=== PATIENT | female | born 1955 | race Caucasian/White ===

== ENCOUNTER 2021-04-21 17:02 | Inpatient (IN) ==
--- NOTE | 2021-04-21 18:20 | XRay Report ---
XR chest 1V portable CLINICAL HISTORY: SOB TECHNIQUE: Single frontal radiograph of the chest was obtained. Comparison: Comparison is made to chest 2 views 07/23/2020 FINDINGS: No lines and tubes are seen. The cardiomediastinal silhouette is normal. The lungs are clear. No evid ence of pleural effusion or pneumothorax. IMPRESSION: No acute chest disease. ACT 112: Negative or not required by law. Electronically signed by: Steven Shrestha M.D. 04/21/2021 6:19 PM
[2021-04-21 19:07] LABS: Basophils # (auto) 0.02 K/uL (0-0.2); Basophils % (auto) 0.2 %; Eosinophils # (auto) 0.01 K/uL (0-0.5); Eosinophils % (auto) 0.1 %; Hematocrit (blood only) 42.5 % (37-47); Hemoglobin 14.5 g/dL (12.0-16.0); Immature Granulocytes # (auto) 0.01 K/uL (0.00-0.02); Immature Granulocytes % (auto) 0.1 %; Lymphocytes # (auto) 1.44 K/uL (1.2-3.4); Lymphocytes % (auto) 13.7 %; Mean Corpuscular Hgb Conc 34.1 g/dL (32-36); Mean Platelet Volume 8.7 fL (7.4-10.4); Monocytes % (auto) 3.8 %; Neutrophils # (auto) 8.64 K/uL (1.4-6.5); Neutrophils % (auto) 82.1 %; Platelet Count 355 K/uL (130-400); RDW Coefficient of Variation 13.7 % (11.5-14.5); RDW Standard Deviation 44.9 fL (36.4-46.3); Red Blood Count 4.67 M/uL (4.2-5.4); White Blood Count 10.52 K/uL (4.8-10.8)
[2021-04-21 19:26] LABS: Albumin Level 4.2 gm/dl (3.4-5.0); BUN Creatinine Ratio 22.4 (10-20); Calcium 9.7 mg/dl (8.5-10.1); Creatinine Clr Calc Pharmacy 53.5 ml/min; Est GFR (African American) 67.5 ml/min; Est GFR (Non-African American) 58.3 ml/min; Magnesium 2.5 mg/dl (1.8-2.4); Partial Thromboplastin Ratio 0.9; Partial Thromboplastin Time 24.6 Seconds (21.0-31.0); Potassium 3.4 mmol/L (3.5-5.1); Prothrombin Time 10.1 Seconds (9.0-12.0)
[2021-04-21 19:52] LABS: Albumin Globulin Ratio 1.1 (0.9-2); Bilirubin,Total 0.4 mg/dl (0.2-1); Globulin 3.7 gm/dl (2.5-4.0); Total Protein 7.9 gm/dl (6.4-8.2); Troponin I 0.177 ng/ml (0-0.045)
--- NOTE | 2021-04-21 20:44 | Emergency Department Note ---
Impression & Plan Elevated troponin, Acute pulmonary embolism ADMIT ED Provider Note HPI: The patient is a 65-year-old female with history of hypertension, patient presents the emergency department with a chief complaint of shortness of breath.Patient states that her symptoms began yesterday, she felt more short of breath with exertion, has a slight cough, she has had some wheezing. She states that she took her blood pressure at home and it was elevated greater than 200 systolic today which also concerned her. She denies any chest pain but does admit to chest "weakness" which she states is secondary to her increased work of breathing.On arrival to the ED the patient is uncomfortable appearing, she is slightly tachypneic with some mild increased work of breathing. She is sat urating well on room air. She is afebrile on arrival. ROS: - Pulmonary: Increased work of breathing/shortness of breath *10 point review systems was conducted and is otherwise negative unless stated above *Outpatient medications and allergy history reviewed PE: General: Alert, NAD HEENT: Normocephalic, atraumatic, trachea midline Eyes: Extraocular eye movement is intact, no scleral erythema Pulmonary: Mild expiratory wheezing, tachypnea, no crackles Cardio: Regular rate and rhythm GI: Abdomen is soft, nontender : No suprapubic tenderness MSK: No evidence of trauma or malformation of the extremities, no edema Skin: No evidence of rash Neuro: Alert, no focal deficits 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 The RV-LV ratio is approximately 1.1 suggesting right heart strain. No focal consolidation. No mediastinal adenopathy. Comparison made with same day chest x-ray Radiologist: Ar Gomez MD Medical Decision Making: Patient presented with Shortness of breath that has been ongoing for about the past 36 hours. Patient denies any chest pain but states that she is having some "weakness". Labwork shows evidence of a elevated troponin at 0.17, EKG does not show any acute ischemic changes. Hemoglobin is stable, no leukocytosis. Interventions included DuoNeb breathing treatment, IV Solu-Medrol. COVID-[address] angiography of the chest was obtained and shows evidence of bilateral pulmonary emboli with some possible mild right heart strain. EKG does not show any ischemic changes. On re-evaluation the patient is resting comfortably, states that she does feel somewhat anxious therefore she was given a dose of IV Ativan. Heparin drip was ordered. I discussed the above findings with the on-call hospitalist for [facility], Dr. Yip, Who is in agreement to admit the patient to a telemetry bed for further management. Patient was updated in regards to the above findings, she is in agreement for admission. Patient was admitted in improved condition. * CRITICAL CARE TIME: 50 minutes - Diagnosis and management of acute bilateral pulmonary emboli, elevated troponin, initiation of heparin drip for acute bilateral PE in the setting of an elevated troponin with possible right heart strain, time spent at the bedside, interpretation of diagnostic studies, discussion with other physicians and arrangement of admission Diagnosis: 1. Elevated troponin Without ST elevation on EKG 2. Bilateral pulmonary emboli 3. Shortness of breath 4. Anxiety Disposition: Admission Cricket Vanegas DO Emergency Medicine Past Med/Surg History Social History Smoking Status: Never smoker Preferred Language: Bulgarian Feels Safe at Home: Yes Allergies Allergies Allergy/AdvReac Type Severity Reaction Status Date / Time hydrocodone Allergy Intermediate itchiness Verified 04/21/21 22:00 Home Meds Home Medications Medication Instructions Recorded Confirmed atenolol 25 mg tablet 25 mg PO DAILY 04/21/21 04/21/21 cholecalciferol (vitamin D3) 50 50 mcg PO DAILY 04/21/21 04/21/21 mcg (2,000 unit) capsule (Vitamin D3) levothyroxine 112 mcg tablet 112 mcg PO DAILYBB 04/21/21 04/21/21 losartan 25 mg tablet 25 mg PO BID 04/21/21 04/21/21 rosuvastatin 5 mg tablet 5 mg PO HS 04/21/21 04/21/21 Results & Data (ED) Vital Signs Vital Signs - 24 hr 04/21/21 17:15 04/21/21 20:52 04/21/21 22:00 Temperature 36.7 C Temperature Source Temporal Artery Scan Pulse Rate 107 H Pulse Rate [Right Finger] 99 H 86 Pulse Rhythm Regular Pulse Rhythm [Right Finger] Regular Regular Pulse Strength Normal Pulse Strength [Right Finger] Normal Normal Respiratory Rate 20 18 18 Respiratory Effort / Characteristics Non-Labored Spontaneous Non-Labored Non-Labored Respiratory Depth Normal Normal Normal Respiratory Pattern Regular Regular Regular Blood Pressure 178/97 H Blood Pressure [Right Arm] 190/121 H 161/107 H Blood Pressure Mean 124 Blood Pressure Mean [Right Arm] 144 125 Blood Pressure Position Sitting Blood Pressure Position [Right Arm] Lying Pulse Oximetry 94 98 96 Oxygen Delivery Method Room Air Room Air Room Air Sepsis Recent Fever Within 48 Hours No Sepsis New/Unexplained Change in Mental Status No Sepsis Action Taken by Nursing No Action Required Laboratory Data Result diagrams: 04/21/21 18:50 04/21/21 18:50 Lab Results 04/21/21 04/21/21 04/21/21 Range/Units 18:50 18:50 18:50 WBC 10.52 (4.8-10.8) K/uL RBC 4.67 (4.2-5.4) M/uL Hgb 14.5 (12.0-16.0) g/dL Hct 42.5 (37-47) % MCV 91.0 (80-100) fL MCH 31.0 (25-34) pg MCHC 34.1 (32-36) g/dL RDW Std Deviation 44.9 (36.4-46.3) fL RDW Coeff of Ramirez 13.7 (11.5-14.5) % Plt Count 355 (130-400) K/uL MPV 8.7 (7.4-10.4) fL Immature Gran % (Auto) 0.1 % Neut % (Auto) 82.1 % Lymph % (Auto) 13.7 % Storey % (Auto) 3.8 % Eos % (Auto) 0.1 % Baso % (Auto) 0.2 % Neut # (Auto) 8.64 H (1.4-6.5) K/uL Lymph # (Auto) 1.44 (1.2-3.4) K/uL Storey # (Auto) 0.40 (0.11-0.59) K/uL Eos # (Auto) 0.01 (0-0.5) K/uL Baso # (Auto) 0.02 (0-0.2) K/uL Immature Gran # (Auto) 0.01 (0.00-0.02) K/uL PT 10.1 (9.0-12.0) Seconds INR 1.0 (0.9-1.1) APTT 24.6 (21.0-31.0) Seconds PTT Ratio 0.9 Sodium 138 (136-145) mmol/L Potassium 3.4 L (3.5-5.1) mmol/L Chloride 107 (98-107) mmol/L Carbon Dioxide 24 (21-32) mmol/L Anion Gap 7.0 (3-11) BUN 22 H (7-18) mg/dl Creatinine 1.00 (0.6-1.2) mg/dl Est Cr Clr Drug Dosing 53.5 ml/min Est GFR ( Amer) 67.5 ml/min Est GFR (Non-Af Amer) 58.3 ml/min BUN/Creatinine Ratio 22.4 H (10-20) Glucose 117 H (70-99) mg/dl Calcium 9.7 (8.5-10.1) mg/dl Magnesium 2.5 H (1.8-2.4) mg/dl Total Bilirubin 0.4 (0.2-1) mg/dl AST 62 H (15-37) U/L ALT 91 H (12-78) Alkaline Phosphatase 64 (45-117) U/L Troponin I 0.177 H* (0-0.045) ng/ml Total Protein 7.9 (6.4-8.2) gm/dl Albumin 4.2 (3.4-5.0) gm/dl Globulin 3.7 (2.5-4.0) gm/dl Albumin/Globulin Ratio 1.1 (0.9-2) SARS-CoV-2 (PCR) (Negative) Influenza Type A (PCR) (Neg) Influenza Type B (PCR) (Neg) RSV (RT-PCR) (Neg) 04/21/21 Range/Units Unknown WBC (4.8-10.8) K/uL RBC (4.2-5.4) M/uL Hgb (12.0-16.0) g/dL Hct (37-47) % MCV (80-100) fL MCH (25-34) pg MCHC (32-36) g/dL RDW Std Deviation (36.4-46.3) fL RDW Coeff of Ramirez (11.5-14.5) % Plt Count (130-400) K/uL MPV (7.4-10.4) fL Immature Gran % (Auto) % Neut % (Auto) % Lymph % (Auto) % Storey % (Auto) % Eos % (Auto) % Baso % (Auto) % Neut # (Auto) (1.4-6.5) K/uL Lymph # (Auto) (1.2-3.4) K/uL Storey # (Auto) (0.11-0.59) K/uL Eos # (Auto) (0-0.5) K/uL Baso # (Auto) (0-0.2) K/uL Immature Gran # (Auto) (0.00-0.02) K/uL PT (9.0-12.0) Seconds INR (0.9-1.1) APTT (21.0-31.0) Seconds PTT Ratio Sodium (136-145) mmol/L Potassium (3.5-5.1) mmol/L Chloride (98-107) mmol/L Carbon Dioxide (21-32) mmol/L Anion Gap (3-11) BUN (7-18) mg/dl Creatinine (0.6-1.2) mg/dl Est Cr Clr Drug Dosing ml/min Est GFR ( Amer) ml/min Est GFR (Non-Af Amer) ml/min BUN/Creatinine Ratio (10-20) Glucose (70-99) mg/dl Calcium (8.5-10.1) mg/dl Magnesium (1.8-2.4) mg/dl Total Bilirubin (0.2-1) mg/dl AST (15-37) U/L ALT (12-78) Alkaline Phosphatase (45-117) U/L Troponin I (0-0.045) ng/ml Total Protein (6.4-8.2) gm/dl Albumin (3.4-5.0) gm/dl Globulin (2.5-4.0) gm/dl Albumin/Globulin Ratio (0.9-2) SARS-CoV-2 (PCR) NEGATIVE (Negative) Influenza Type A (PCR) Negative (Neg) Influenza Type B (PCR) Negative (Neg) RSV (RT-PCR) Negative (Neg) Administered Medications Discontinued Medications Albuterol (Albut/Ipratrop 3mg/0.5mg Neb 3 Ml Vial) 3 ml NEB NOW STA; Protocol Stop: 04/21/21 20:46 Last Admin: 04/21/21 22:13 Dose: 3 ml Documented by: [id number] Aspirin (Aspirin Chew 324 Mg) 324 mg PO NOW STA Stop: 04/21/21 20:47 Last Admin: 04/21/21 22:13 Dose: 324 mg Documented by: [id number] Hydralazine HCl (Hydralazine Hcl 20 Mg/Ml Vial) 10 mg IV NOW STA Stop: 04/21/21 21:02 Last Admin: 04/21/21 22:13 Dose: 10 mg Documented by: [id number] Ioversol (Optiray 320 125ml) 121 ml IV ONCE ONE Stop: 04/21/21 21:41 Last Admin: 04/21/21 21:40 Dose: 121 ml Documented by: [id number] Methylprednisolone (Methylprednisolone 125 Mg/2 Ml Vial) 125 mg IV NOW STA Stop: 04/21/21 20:46 Last Admin: 04/21/21 22:13 Dose: 125 mg Documented by: [id number] Imaging Data Radiologist's Impression: Chest X-Ray 04/21/21 17:18 XR chest 1V portable CLINICAL HISTORY: SOB TECHNIQUE: Single frontal radiograph of the chest was obtained. Comparison: Comparison is made to chest 2 views 07/23/2020 FINDINGS: No lines and tubes are seen. The cardiomediastinal silhouette is normal. The lungs are clear. No evidence of pleural effusion or pneumothorax. IMPRESSION: No acute chest disease. ACT 112: Negative or not required by law. Electronically signed by: Steven Shrestha M.D. 04/21/2021 6:19 PM Discharge Plan Visit Data Chief Complaint: Shortness of Breath/Dyspnea Stated Complaint: SOB, HBP 201/109 ED Provider: Cricket Vanegas Discharge Problem: Elevated troponin, Acute pulmonary embolism Forms Stand Alone Forms: [employer] Prescriptions Prescriptions: No Action atenolol 25 mg tablet 25 mg PO DAILY RF: 0 losartan 25 mg tablet 25 mg PO BID RF: 0 levothyroxine 112 mcg tablet 112 mcg PO DAILYBB RF: 0 rosuvastatin 5 mg tablet 5 mg PO HS RF: 0 cholecalciferol (vitamin D3) [Vitamin D3] 50 mcg (2,000 unit) Capsule 50 mcg PO DAILY RF: 0 Referrals Referrals: Bo Barraza [Primary Care Provider] - Discharge Problem: Acute pulmonary embolism Qualifiers: Pulmonary embolism type: unspecified Acute cor pulmonale presence: unspecified Qualified Code(s): I26.99 - Other pulmonary embolism without acute cor pulmonale
[2021-04-21] MEDS ORDERED: ALBUT/IPRATROP 3MG/0.5MG NEB 3 ML VIAL NEB STA (20:45)
[2021-04-21] MEDS ORDERED: methylPREDNISolone 125 MG/2 ML VIAL IV STA (20:45)
[2021-04-21] MEDS ORDERED: ASPIRIN CHEW 324 MG PO STA (20:46)
[2021-04-21] MEDS ORDERED: hydrALAZINE HCL 20 MG/ML VIAL IV STA (21:01)
[2021-04-21] MEDS ORDERED: OPTIRAY 320 125ml IV ONE (21:40)
[2021-04-21 22:03] LABS: Influenza A virus by PCR Negative (Neg); Influenza B virus by PCR Negative (Neg); RSV by PCR Negative (Neg); SARS CoV2 RNA(COVID-19) InHosp NEGATIVE (Negative)
[2021-04-21] MEDS ORDERED: Heparin IV Adult Wt-Based Standard *NO* Bolus Protocol IV ONE (22:42)
[2021-04-21] MEDS: HEPARIN SODIUM/DEXTROSE 25,000 UNITS/500 ML BAG IV SCH (23:37)
[2021-04-22] MEDS ORDERED: LORazepam 0.5 MG TAB PO STA (00:02)
[2021-04-22] MEDS ORDERED: POTASSIUM CHLORIDE CRTAB 20 MEQ TABCR PO STA (01:45)
[2021-04-22] MEDS ORDERED: LABETALOL HCL IV 5 MG/ML 20ML IV PRN (01:45)
--- NOTE | 2021-04-22 02:51 | History and Physical Report ---
DATE OF ADMISSION: 04/21/2021. CHIEF COMPLAINT: Shortness of breath. HISTORY OF PRESENT ILLNESS: This is a 65-year-old female with past medical history significant for hypertension, heartburn, hyperlipidemia, hypothyroidism, history of basal cell skin cancer, who lives alone, presents with shortness of breath. The patient states since last night she was feeling short of breath, which prompted her to come to the ER. Denies any chest pain. No cough, no fevers, no headache, no blurred visions, no runny nose, no sore throat. No nausea, no vomiting, no abdominal pain. Normal bowel and bladder movements. No hematuria, no blood in the stool No Night sweats. No recent weight gain or loss. Says Had Normal colonoscopy in 2013. In the ER, imaging studies showed bilateral PE and also possible right heart strain. Troponin 0.17. With 2 liters oxygen, she is saturating 100%. Feeling somewhat anxious and requested for some antianxiety medication. The patient says she has no history of blood clots in the past and the patient says her mother's side has a history of blood clots. Denies any leg pain. Denies any recent surgeries otherwise. She is not very active, but she ambulates okay at home and she baby sits her two grandkids. ALLERGIES: HYDROCODONE. PAST MEDICAL HISTORY: As mentioned above. PAST SURGICAL HISTORY: Right total knee arthroplasty, colonoscopy, EGD, skin cancer surgery x3 in 2011, partial hysterectomy. MEDICATIONS: The patient is on atenolol 25 mg p.o. daily, vitamin D 50 mcg p.o. daily, levothyroxine 112 mcg p.o. daily, losartan 25 mg p.o. b.i.d., Crestor 5 mg p.o. at bedtime. FAMILY HISTORY: Significant for father had esophageal cancer and HI at age of 65; mother has hypertension, kidney cancer and diabetes. SOCIAL HISTORY: Currently lives alone. No smoking, alcohol rare, no drug use. REVIEW OF SYSTEMS: As per HPI. Rest of review of systems is negative. PHYSICAL EXAMINATION: GENERAL: The patient is of moderate build, not in acute distress. VITAL SIGNS: Temperature 36.7, pulse 103, respiratory rate 20, blood pressure 189/104, oxygen 100% on 2 liters. HEENT: Pupils equal, round and reactive to light. Oral mucosa moist. NECK: No JVD. No neck masses. CARDIOVASCULAR: S1 and S2 heard. Regular rate and rhythm. No murmur, no gallop. RESPIRATORY SYSTEM: Normal AP diameter. No accessory muscle use. No wheezing, no crackles. ABDOMEN: Soft, bowel sounds present, nontender, no distention. CENTRAL NERVOUS SYSTEM: Cranial nerves II-XII grossly intact, nonfocal. EXTREMITIES: Trace pedal edema, no erythema, no calf tenderness. LABORATORY DATA: WBC 10.5, hemoglobin 14.5, hematocrit 42.5, platelets 355. PT 10.1, INR 1, APTT 24.6. Sodium 138, potassium 3.4, chloride 107, bicarbonate 24, BUN 22, creatinine 1, serum glucose 117, calcium 9.72, magnesium 2.5, total bilirubin 0.4, AST 62, ALT 91, alkaline phosphatase 64. Troponin 1 of 0.177. SARS-CoV-2 PCR negative. Influenza A and B PCR negative. RSV PCR negative. IMAGING DATA: CTA of the chest on the preliminary report shows multilobar and segmental pulmonary emboli bilaterally, possible right heart strain, no focal consolidation. Chest x-ray, no acute chest disease. EKG: Sinus tachycardia at a rate of 103, nonspecific ST changes seen. ASSESSMENT AND PLAN: This is a 65-year-old female who presents with shortness of breath and found to have bilateral pulmonary embolism. 1. Bilateral pulmonary embolism. Possible right heart strain, unprovoked pulmonary embolism. Family history significant for blood clots on the mother's side. The patient never had blood clots. Mild elevation of troponin. Possible right heart strain on CAT scan. Will follow the echocardiogram. Started on IV heparin. Also will follow lower extremity Doppler. Closely monitor in the tele floor. Consult pulmonary in the a.m. and also cardiology in the a.m. and follow serial cardiac enzymes.Hypercoagulable workup and cancer screening as out patient. 2. Hypertension: Continue her atenolol and losartan. Will place on IV labetalol p.r.n. 3. Hypothyroidism: Continue Synthroid. 4. Hyperlipidemia: Continue statin. 5. Deep venous thrombosis prophylaxis: On IV heparin. DISPOSITION: Closely monitor in tele floor. Level 1 full code. Expect to discharge home and follow with family doctor. Job ID: [id number] [facility]
[2021-04-22] MEDS ORDERED: ONDANSETRON INJ 2 MG/ML 2 ML VIAL IV PRN (03:54)
[2021-04-22] MEDS ORDERED: LEVALBUTEROL HCL 1.25 MG/3 ML NEB NEB PRN (03:54)
[2021-04-22] MEDS ORDERED: NITROGLYCERIN SL 0.4 MG/TAB TAB SL PRN (03:54)
[2021-04-22] MEDS ORDERED: SODIUM CHLORIDE 0.9% 1000ML 1,000 ML IV SCH (03:54)
[2021-04-22 06:08] LABS: Hematocrit (blood only) 42.4 % (37-47); Hemoglobin 14.4 g/dL (12.0-16.0); Immature Granulocytes # (auto) 0.02 K/uL (0.00-0.02); Immature Granulocytes % (auto) 0.2 %; Lymphocytes # (auto) 0.86 K/uL (1.2-3.4); Lymphocytes % (auto) 8.7 %; Mean Corpuscular Hemoglobin 30.6 pg (25-34); Mean Corpuscular Volume 90.2 fL (80-100); Mean Platelet Volume 8.7 fL (7.4-10.4); Monocytes # (auto) 0.04 K/uL (0.11-0.59); Monocytes % (auto) 0.4 %; Neutrophils # (auto) 8.99 K/uL (1.4-6.5); Neutrophils % (auto) 90.7 %; Platelet Count 325 K/uL (130-400); RDW Coefficient of Variation 13.7 % (11.5-14.5); RDW Standard Deviation 45.3 fL (36.4-46.3); White Blood Count 9.91 K/uL (4.8-10.8)
--- NOTE | 2021-04-22 06:32 | Ultrasound Report ---
BILATERAL LOWER EXTREMITY VENOUS DOPPLER CLINICAL HISTORY: b/l acute PE COMPARISON STUDY: No previous studies for comparison. TECHNIQUE: Sonography of the deep venous system of the bilateral lower extremities was performed. Co mpression and augmentation were evaluated. FINDINGS: The bilateral common femoral, superficial femoral and popliteal veins are patent. There is no deep venous thrombus within the right lower extremity. Note is made of deep venous thrombus within the left posterior tibial vein. IMPRESSION: Deep venous thrombus within the left posterior tibial vein. ACT 112: Negative or not required by law. Electronically signed by: Nirav White M.D. 04/22/2021 6:30 AM
[2021-04-22 06:39] LABS: Partial Thromboplastin Ratio 1.8
[2021-04-22 06:40] LABS: BUN Creatinine Ratio 19.2 (10-20); Calcium 9.5 mg/dl (8.5-10.1); Creatinine Clr Calc Pharmacy 69.2 ml/min; Est GFR (African American) 89.8 ml/min; Est GFR (Non-African American) 77.5 ml/min; Magnesium 2.3 mg/dl (1.8-2.4); Potassium 3.7 mmol/L (3.5-5.1)
[2021-04-22 06:53] LABS: Troponin I 0.073 ng/ml (0-0.045)
[2021-04-22 07:15] LABS: Partial Thromboplastin Time 46.1 Seconds (21.0-31.0)
[2021-04-22] MEDS: LEVOTHYROXINE SODIUM 112 MCG TABLET PO SCH (07:19)
--- NOTE | 2021-04-22 08:21 | CT Scan Report ---
CT angio chest PE protocol CLINICAL HISTORY: PE dyspnea, worse with exertion. TECHNIQUE: Multidetector row helical CT of the chest was performed. Coronal and sagittal reformations were obtained. Coronal and sagittal MIPS were obtained from the axial data set and were submitted fo r review. Automated dose lowering techniques and/or adjustment according to patient size were utiliz ed for this exam. Comparison: None available at the time of this dictation. FINDINGS: Lungs and pleura: Atelectasis versus scarring is seen in the dependent portions of the lungs. Heart and pericardium: There is flattening of the interventricular septum and enlargement of the righ t ventricle compared to left (51 mm versus 45 mm. Vessels: Pulmonary emboli are seen in the lobar segmental branches of all lobes of the lung, some of the segmental emboli are occlusive. Mediastinum and tamara: Unremarkable. Chest wall and lower neck: Unremarkable. Abdomen: Unremarkable. Bones: Degenerative changes in the thoracic spine. IMPRESSION: Multifocal lobar and segmental pulmonary emboli bilaterally finding with right heart strain. ACT 112: Negative or not required by law. Electronically signed by: Steven Shrestha M.D. 04/22/2021 8:20 AM
--- NOTE | 2021-04-22 08:52 | Pulmonary Consultation ---
Date of Consultation April 22, 2021 Assessment & Plan (1) Acute pulmonary embolism: Acute cor pulmonale presence: unspecified Pulmonary embolism type: unspecified Qualified Code(s): I26.99 - Other pulmonary embolism without acute cor pulmonale (2) Shortness of breath: (3) DVT (deep venous thrombosis): CTA chest 04/21/2021 personally reviewed: Bilateral segmental and segmental PEs appreciated. Minimal air trapping lower lobes No mediastinal lymphadenopathy --Acute PE Mild right heart strain appreciated on the CT a chest 2D echo shows normal right ventricular function Patient is hemodynamically stable with saturation 98% on room air No indication for TPA currently Unprovoked. Patient will likely need lifelong anticoagulation. Given the family history of blood clots. Patient should be worked up for hypercoagulable state. Patient might need warfarin at that valuation prior to discharge --DVT Left tibia --Morbid obesity Advised to lose with diet and exercise Patient will benefit from outpatient polysomnography Plan: Patient is hemodynamically stable. She is saturating 98% on room air 2D echo shows normal right ventricular size and function. She does have mild to moderate pulmonary hypertension which is most likely from underlying PE Incentive spirometry will be beneficial. No indication for TPA. Patient will likely need lifelong anticoagulation. Given the family history of blood clots. Patient should be worked up for hyp ercoagulable state. Patient might need warfarin at that valuation prior to discharge Continue with anticoagulation Case was discussed with Dr Ordoñez No further recommendation from pulmonary perspective. We will sign off. Please call directly with any questions Please note the above document was generated using voice recognition software. It may contain grammatical, syntax or spelling errors.Any formal questions or concerns about the content, text or information contained within the body of this dictation should be directly addressed to the provider for clarification. History of Present Illness Attending Physician: Marco A Ordoñez MD History of Present Illness 65-year-old female presented to the hospital with complaints of exertional shortness of breath and chest heaviness Past medical history: Dyslipidemia, GERD, hypothyroidism When she presented to the ED patient had a CTA done which showed bilateral PE Pulmonary consulted for the same. The time of examination patient was saturating 96% on room air. She was not tachycardic. Not in any distress Denied any chest pain, denies any pleuritic pain. No nausea or vomiting Denies any hemoptysis. She denies any recent travel history. No recent surgery. No trauma to the leg. There is strong family history of blood clots in the maternal side. Social history: Non-smoker, no illicit drug use, no alcohol use. Allergies Allergy/AdvReac Type Severity Reaction Status Date / Time hydrocodone Allergy Intermediate itchiness Verified 04/21/21 22:00 Home Medications Medication Instructions Recorded Confirmed Type atenolol 25 mg tablet 25 mg PO DAILY 04/21/21 04/21/21 History cholecalciferol (vitamin D3) 50 50 mcg PO DAILY 04/21/21 04/21/21 History mcg (2,000 unit) capsule (Vitamin D3) levothyroxine 112 mcg tablet 112 mcg PO DAILYBB 04/21/21 04/21/21 History losartan 25 mg tablet 25 mg PO BID 04/21/21 04/21/21 History rosuvastatin 5 mg tablet 5 mg PO HS 04/21/21 04/21/21 History Patient History Social History Smoking Status: Never smoker Hx Substance Use: No Preferred Language: Scottish Communication Ability: Effective Communication Ability Comment: Hearing Aids Media Relations Coordinator Required: No Beliefs That Will Affect Care: None Current Living Situation: Alone Feels Safe at Home: Yes Safety Concerns: Feels Safe At This Time Assistive Devices: None Review of Systems Review of Systems: All systems reviewed & are unremarkable except as noted in HPI & below Physical Exam Physical Exam: Constitutional: No acute distress HEENT: EOMI, PERRLA Respiratory system: Good air entry bilaterally, no wheeze, rhonchi, mild crackles bilateral lower lobes CVS: S1-S2 positive, no murmurs or gallops Abdomen: Soft, nontender, nondistended, positive bowel sounds x4 Extremities: +2 pulses bilaterally radialis/ dorsalis pedis, no cyanosis, no edema Neuro: Awake alert oriented x3 Psych: Normal mood and affect G/U: No Vaughan Skin: no rashes, warm and dry Lymphatic: no cervical or axillary lymphadenopathy Results & Data Results & Data ([facility]) Vital Signs (Past 12 Hours) Vital Signs Pulse Resp BP Pulse Ox Pulse Ox 04/22/21 08:23 97 H 19 150/93 H 98 04/22/21 05:41 95 H 24 157/104 H 98 04/22/21 04:27 90 17 129/80 94 94 04/22/21 03:20 96 H 25 H 144/96 H 95 04/21/21 23:44 103 H 20 189/104 H 100 04/21/21 22:00 86 18 161/107 H 96 04/21/21 20:52 99 H 18 190/121 H 98 04/22/21 05:48 04/22/21 05:48 PG Care Time/CCT Total # of Minutes Spent Total Time Spent with Patient: Total time spent is greater than 50% in coordination of care (as documented) at patient's floor/unit and/or counseling patient: Coding Level of Care Code 10233 Initial Inpt Care Lvl 3 Diagnoses Acute pulmonary embolism I26.99 Acute cor pulmonale presence: unspecified Pulmonary embolism type: unspecified Shortness of breath R06.02 DVT (deep venous thrombosis) I82.409
[2021-04-22] MEDS ORDERED: ATENOLOL 25 MG TABLET PO SCH (09:00)
[2021-04-22] MEDS: LOSARTAN POTASSIUM 25 MG TAB PO SCH ×2 (09:07→20:59)
[2021-04-22] MEDS: CHOLECALCIFEROL 1,000 UNITS 25 MCG TAB PO SCH (09:08)
--- NOTE | 2021-04-22 10:23 | Electrocardiogram Report ---
Test Reason : Blood Pressure : / mmHG Vent. Rate : 103 BPM Atrial Rate : 103 BPM P-R Int : 196 ms QRS Dur : 082 ms QT Int : 356 ms P-R-T Axes : 058 023 035 degrees QTc Int : 466 ms Sinus tachycardia Otherwise normal ECG When compared with ECG of 23-JUL-2014 14:35, Vent. rate has increased BY 40 BPM Non-specific change in ST segment in Anterior leads QT has lengthened Confirmed by Sandeep Edward ([id number]) on 04/22/2021 10:23:35 AM Referred By: REFERRED SELF Confirmed By:Sandeep Edward
--- NOTE | 2021-04-22 10:25 | Cardiology Consultation ---
Date of Consultation April 22, 2021 Assessment & Plan (1) Acute pulmonary embolism: (2) Elevated troponin: Patient is a 65-year-old female presents with acute bilateral pulmonary emboli Troponins mildly elevated reflecting ventricular strain from acute pulmonary issues. Echocardiogram with preserved LV systolic function as well as right ventricular systolic function, moderately elevated pulmonary pressures Exam notable for hypertension and mild tachycardia Recommendations: Anticoagulation as indicated. Findings do not suggest acute coronary syndrome. Would however increase atenolol to 50 mg/day and follow blood pressure closely. Patient at risk for atrial arrhythmias if blood pressure and heart rate uncontrolled Call with any question History of Present Illness Reason for Consultation: Elevated troponin, pulmonary emboli Requesting Physician: Dr. Ordoñez Attending Physician: Marco A Ordoñez MD History of Present Illness Patient is a 65-year-old female without prior history of cardiac disease with underlying issues to include hypertension, hyperlipidemia, obesity. She presents this admission noting having been relatively sedentary recently due to flaring chronic back pain. She presented with acute dyspnea with subsequent evaluation demonstrating bilateral pulmonary embolus and deep venous thrombosis. Patient notes no prior history of such but notes familial history of "blood clots" in maternal family. Denies any chest pains dizziness lightheadedness tachypalpitations syncope or near syncope. No recent surgeries or leg injuries. No orthopnea. Currently dyspneic with minimal motion but otherwise no acute complaints. No prior history of bleeding difficulties. No acute weight loss or gain. No fevers chills or unexplained infections. Allergies Allergy/AdvReac Type Severity Reaction Status Date / Time hydrocodone Allergy Intermediate itchiness Verified 04/21/21 22:00 Home Medications Medication Instructions Recorded Confirmed Type atenolol 25 mg tablet 25 mg PO DAILY 04/21/21 04/21/21 History cholecalciferol (vitamin D3) 50 50 mcg PO DAILY 04/21/21 04/21/21 History mcg (2,000 unit) capsule (Vitamin D3) levothyroxine 112 mcg tablet 112 mcg PO DAILYBB 04/21/21 04/21/21 History losartan 25 mg tablet 25 mg PO BID 04/21/21 04/21/21 History rosuvastatin 5 mg tablet 5 mg PO HS 04/21/21 04/21/21 History Patient History Social History Smoking Status: Never smoker Hx Substance Use: No Preferred Language: Frisian Communication Ability: Impaired Communication Ability Comment: Hearing Aids General Repairer Required: No Beliefs That Will Affect Care: None Current Living Situation: Alone Feels Safe at Home: Yes Safety Concerns: Feels Safe At This Time Review of Systems Review of Systems: All systems reviewed & are unremarkable except as noted in HPI & below Physical Exam Constitutional: + morbidly obese Mildly dyspnea Eyes: PERRL, conjunctivae normal, anicteric sclerae ENMT: external ear and nose normal, oropharynx normal Neck: trachea midline, no thyromegaly Respiratory: Auscultation: lungs clear to auscultation bilaterally Cardiovascular: Rate/Rhythm: regular rate and regular rhythm Heart Sounds: normal S1 and normal S2; no murmur Vessels: radial pulses present; no JVD Extremities: + edema (Trivial) Gastrointestinal (Abdomen): normal bowel sounds, soft, nontender, no hepatosplenomegaly Musculoskeletal: no cyanosis or clubbing, extremities motor strength 5/5 Results & Data ([facility]) Vital Signs (Past 12 Hours) Vital Signs Pulse Resp BP Pulse Ox Pulse Ox 04/22/21 08:23 97 H 19 150/93 H 98 04/22/21 05:41 95 H 24 157/104 H 98 04/22/21 04:27 90 17 129/80 94 94 04/22/21 03:20 96 H 25 H 144/96 H 95 04/21/21 23:44 103 H 20 189/104 H 100 Laboratory Results Laboratory Results - last 24 hr 04/21/21 04/21/21 04/21/21 18:50 18:50 18:50 WBC 10.52 RBC 4.67 Hgb 14.5 Hct 42.5 MCV 91.0 MCH 31.0 MCHC 34.1 RDW Std Deviation 44.9 RDW Coeff of Ramirez 13.7 Plt Count 355 MPV 8.7 Immature Gran % (Auto) 0.1 Neut % (Auto) 82.1 Lymph % (Auto) 13.7 [place] % (Auto) 3.8 Eos % (Auto) 0.1 Baso % (Auto) 0.2 Neut # (Auto) 8.64 H Lymph # (Auto) 1.44 [place] # (Auto) 0.40 Eos # (Auto) 0.01 Baso # (Auto) 0.02 Immature Gran # (Auto) 0.01 PT 10.1 INR 1.0 APTT 24.6 PTT Ratio 0.9 Sodium 138 Potassium 3.4 L Chloride 107 Carbon Dioxide 24 Anion Gap 7.0 BUN 22 H Creatinine 1.00 Est Cr Clr Drug Dosing 53.5 Est GFR ( Amer) 67.5 Est GFR (Non-Af Amer) 58.3 BUN/Creatinine Ratio 22.4 H Glucose 117 H Calcium 9.7 Magnesium 2.5 H Total Bilirubin 0.4 AST 62 H ALT 91 H Alkaline Phosphatase 64 Troponin I 0.177 H* Total Protein 7.9 Albumin 4.2 Globulin 3.7 Albumin/Globulin Ratio 1.1 SARS-CoV-2 (PCR) Influenza Type A (PCR) Influenza Type B (PCR) RSV (RT-PCR) 04/21/21 04/22/21 04/22/21 Unknown 05:48 05:48 WBC 9.91 RBC 4.70 Hgb 14.4 Hct 42.4 MCV 90.2 MCH 30.6 MCHC 34.0 RDW Std Deviation 45.3 RDW Coeff of Ramirez 13.7 Plt Count 325 MPV 8.7 Immature Gran % (Auto) 0.2 Neut % (Auto) 90.7 Lymph % (Auto) 8.7 [place] % (Auto) 0.4 Eos % (Auto) 0.0 Baso % (Auto) 0.0 Neut # (Auto) 8.99 H Lymph # (Auto) 0.86 L [place] # (Auto) 0.04 L Eos # (Auto) 0.00 Baso # (Auto) 0.00 Immature Gran # (Auto) 0.02 PT INR APTT 46.1 H* PTT Ratio 1.8 Sodium Potassium Chloride Carbon Dioxide Anion Gap BUN Creatinine Est Cr Clr Drug Dosing Est GFR ( Amer) Est GFR (Non-Af Amer) BUN/Creatinine Ratio Glucose Calcium Magnesium Total Bilirubin AST ALT Alkaline Phosphatase Troponin I Total Protein Albumin Globulin Albumin/Globulin Ratio SARS-CoV-2 (PCR) NEGATIVE Influenza Type A (PCR) Negative Influenza Type B (PCR) Negative RSV (RT-PCR) Negative 04/22/21 05:48 WBC RBC Hgb Hct MCV MCH MCHC RDW Std Deviation RDW Coeff of Ramirez Plt Count MPV Immature Gran % (Auto) Neut % (Auto) Lymph % (Auto) [place] % (Auto) Eos % (Auto) Baso % (Auto) Neut # (Auto) Lymph # (Auto) [place] # (Auto) Eos # (Auto) Baso # (Auto) Immature Gran # (Auto) PT INR APTT PTT Ratio Sodium 138 Potassium 3.7 Chloride 109 H Carbon Dioxide 20 L Anion Gap 9.0 BUN 15 Creatinine 0.79 Est Cr Clr Drug Dosing 69.2 Est GFR ( Amer) 89.8 Est GFR (Non-Af Amer) 77.5 BUN/Creatinine Ratio 19.2 Glucose 166 H Calcium 9.5 Magnesium 2.3 Total Bilirubin AST ALT Alkaline Phosphatase Troponin I 0.073 H* Total Protein Albumin Globulin Albumin/Globulin Ratio SARS-CoV-2 (PCR) Influenza Type A (PCR) Influenza Type B (PCR) RSV (RT-PCR) Diagnostic Findings Echocardiogram 04/22/2021 The left ventricle is normal in size There is mild left hypertrophy Ejection fraction 65 to 70% with normal wall motion Right ventricle is normal in size and function Right ventricular systolic pressure moderately elevated at 40-50mmHG ECG Additional Comments: Vent. Rate : 103 BPM Atrial Rate : 103 BPM P-R Int : 196 ms QRS Dur : 082 ms QT Int : 356 ms P-R-T Axes : 058 023 035 degrees QTc Int : 466 ms Sinus tachycardia Otherwise normal ECG When compared with ECG of 23-JUL-2014 14:35, Vent. rate has increased BY 40 BPM Non-specific change in ST segment in Anterior leads QT has lengthened (1) Acute pulmonary embolism Acute cor pulmonale presence: unspecified Pulmonary embolism type: unspecified Qualified Code(s): I26.99 - Other pulmonary embolism without acute cor pulmonale
[2021-04-22] MEDS ORDERED: ATENOLOL 25 MG TABLET PO ONE (10:35)
--- NOTE | 2021-04-22 17:38 | Hospitalist Progress Note ---
Date of Service April 22, 2021 Assessment & Plan (1) Acute pulmonary embolism: Plan: Presented with acute shortness of breath and noted to have pulmonary embolism and DVT without any provocation Has significant bilateral segmental and subsegmental pulmonary embolism No significant straining on heart as per decontamination technician Has been on intravenous heparin and will continue for next few days Complains to have shortness of breath on exertion but no hemoptysis Likely to need prolonged anticoagulation Given the history of extensive pulmonary embolism will keep her in the hospital for the next few days on intravenous heparin Remote family history of DVT (2) DVT (deep venous thrombosis): Plan: Acute DVT of left popliteal vein likely causing pulmonary embolism Management as above No symptoms in the legs (3) Shortness of breath: Plan: Secondary to above (4) Elevated troponin: Plan: Elevated troponin is due to demand ischemia Initial troponin was high at 0.1 and subsequently it gradually went down Echocardiogram showed-normal LV size with mild concentric hypertrophy, LV wall motion is normal, EF 65 to 70%, grade 1 diastolic dysfunction, RV is normal in size and function, normal inferior vena cava size and collapsibility with sniff indicates a normal right atrial pressure of 3 mmHg, right ventricular systolic pressure is moderately elevated at 40 to 50 mmHg. Appreciate cardiology input and recommendation (5) Hypertension: Plan: Remains stable (6) Hyperlipidemia: Plan: Continue statin (7) Hypothyroidism: Plan: Continue supplement Admission and Anticipated Discharge Date Admission Date: April 21, 2021 Subjective 04/22/2021 The patient was seen and examined in emergency room in the holding area She has been feeling a little better Denies any chest pain and/or palpitation but he still has shortness of breath with minimal exertion No fever, chills and/or hemoptysis Review of Systems Review of Systems: All systems reviewed and are unremarkable except as noted below Respiratory: S OBE Physical Exam Physical Exam: Lying in bed comfortably but very anxious Constitutional: well developed, well nourished, + ill appearing and + morbidly obese Eyes: PERRL, conjunctivae normal, anicteric sclerae ENMT: external ear and nose normal, oropharynx normal Neck: trachea midline, no thyromegaly Respiratory: + respiratory distress (Minimal distress at rest) Auscultation: lungs clear to auscultation bilaterally; no crackles and no wheezes Cardiovascular: Rate/Rhythm: regular rate and regular rhythm; not tachycardic Heart Sounds: normal S1 and normal S2; no murmur Extremities: + edema (Trace edema bilaterally) Gastrointestinal (Abdomen): Inspection/Auscultation: normal bowel sounds; abdomen not distended Percussion/Palpation: abdomen soft; abdomen nontender Musculoskeletal: No acute arthritis in any joint Neurologic: Alert, awake and oriented x3. No focal sensory and motor deficit appreciated Lymphatic: no cervical or axillary lymphadenopathy Results & Data Results & Data ([facility]) Vital Signs (Past 12 Hours) Vital Signs Pulse Resp BP Pulse Ox 04/22/21 11:52 86 20 145/79 H 94 04/22/21 08:23 97 H 19 150/93 H 98 04/22/21 05:41 95 H 24 157/104 H 98 Laboratory Results Short CBC 04/21/21 04/22/21 Range/Units 18:50 05:48 WBC 10.52 9.91 (4.8-10.8) K/uL Hgb 14.5 14.4 (12.0-16.0) g/dL Hct 42.5 42.4 (37-47) % Plt Count 355 325 (130-400) K/uL BMP 04/21/21 04/22/21 18:50 05:48 Sodium 138 138 Potassium 3.4 L 3.7 Chloride 107 109 H Carbon Dioxide 24 20 L BUN 22 H 15 Creatinine 1.00 0.79 Glucose 117 H 166 H Calcium 9.7 9.5 Cardiac Enzymes 04/21/21 04/22/21 04/22/21 Range/Units 18:50 05:48 11:26 Troponin I 0.177 H* 0.073 H* 0.048 H* (0-0.045) ng/ml Liver Function 04/21/21 Range/Units 18:50 Total Bilirubin 0.4 (0.2-1) mg/dl AST 62 H (15-37) U/L ALT 91 H (12-78) Alkaline Phosphatase 64 (45-117) U/L Albumin 4.2 (3.4-5.0) gm/dl Medications Administered Current Inpatient Medications Acetaminophen (Acetaminophen 325 Mg Tab) 650 mg PO Q4H PRN PRN Reason: Pain or Fever Stop: 05/22/21 03:53 Atenolol (Atenolol 50 Mg Tablet) 50 mg PO DAILY [facility] Stop: 05/23/21 08:59 Heparin Sodium/Dextrose (Heparin Sodium/Dextrose) 25,000 units in 500 mls @ 24 mls/hr IV .[id number] [facility]; Protocol Stop: 05/21/21 22:59 Last Admin: 04/21/21 23:37 Dose: 1,200 units/hr, 24 mls/hr Documented by: Labetalol HCl (Labetalol Hcl Iv 5 Mg/Ml 20ml) 10 mg IV Q4H PRN PRN Reason: Hypertension Stop: 05/22/21 01:44 Levalbuterol HCl (Levalbuterol Hcl 1.25 Mg/3 Ml Neb) 1.25 mg NEB Q4H PRN; Pro tocol PRN Reason: Shortness Of Breath Or Wheezing Stop: 05/22/21 03:53 Levothyroxine Sodium (Levothyroxine Sodium 112 Mcg Tablet) 112 mcg PO DAILYBB [facility] Stop: 05/22/21 06:29 Last Admin: 04/22/21 07:19 Dose: 112 mcg Documented by: Losartan Potassium (Losartan Potassium 25 Mg Tab) 25 mg PO BID [facility] Stop: 05/22/21 08:59 Last Admin: 04/22/21 09:07 Dose: 25 mg Documented by: Nitroglycerin (Nitroglycerin Sl 0.4 Mg/Tab Tab) 0.4 mg SL UD PRN PRN Reason: Chest Pain Stop: 05/22/21 03:53 Ondansetron HCl (Ondansetron Inj 2 Mg/Ml 2 Ml Vial) 4 mg IV Q6H PRN PRN Reason: Nausea Stop: 05/22/21 03:53 Rosuvastatin Calcium (Rosuvastatin Calcium 5 Mg Tab) 5 mg PO HS [facility] Stop: 05/22/21 20:59 Vitamin D (Cholecalciferol 1,000 Units 25 Mcg Tab) 2,000 units PO DAILY [facility] Stop: 05/22/21 08:59 Last Admin: 04/22/21 09:08 Dose: 2,000 units Documented by: (1) Acute pulmonary embolism Acute cor pulmonale presence: unspecified Pulmonary embolism type: unspecified Qualified Code(s): I26.99 - Other pulmonary embolism without acute cor pulmonale
[2021-04-22] MEDS: ROSUVASTATIN CALCIUM 5 MG TAB PO SCH (20:59)
[2021-04-22] MEDS: HEPARIN SODIUM/DEXTROSE 25,000 UNITS/500 ML BAG IV SCH (21:17)
[2021-04-23] MEDS: LEVOTHYROXINE SODIUM 112 MCG TABLET PO SCH (05:19)
[2021-04-23 07:04] LABS: Basophils # (auto) 0.01 K/uL (0-0.2); Basophils % (auto) 0.1 %; Eosinophils # (auto) 0.01 K/uL (0-0.5); Eosinophils % (auto) 0.1 %; Hemoglobin 13.3 g/dL (12.0-16.0); Immature Granulocytes # (auto) 0.02 K/uL (0.00-0.02); Immature Granulocytes % (auto) 0.2 %; Lymphocytes % (auto) 16.9 %; Mean Corpuscular Hemoglobin 30.9 pg (25-34); Mean Corpuscular Hgb Conc 33.3 g/dL (32-36); Mean Platelet Volume 8.8 fL (7.4-10.4); Monocytes # (auto) 0.75 K/uL (0.11-0.59); Neutrophils # (auto) 9.52 K/uL (1.4-6.5); Neutrophils % (auto) 76.7 %; Platelet Count 315 K/uL (130-400); RDW Coefficient of Variation 14.1 % (11.5-14.5); RDW Standard Deviation 47.9 fL (36.4-46.3); White Blood Count 12.41 K/uL (4.8-10.8)
[2021-04-23 07:26] LABS: Partial Thromboplastin Ratio 1.5; Partial Thromboplastin Time 38.5 Seconds (21.0-31.0)
[2021-04-23 07:27] LABS: BUN Creatinine Ratio 24.4 (10-20); Calcium 9.3 mg/dl (8.5-10.1); Creatinine Clr Calc Pharmacy 67.5 ml/min; Est GFR (African American) 87.1 ml/min; Est GFR (Non-African American) 75.2 ml/min
[2021-04-23] MEDS: ATENOLOL 50 MG TABLET PO SCH (09:00)
[2021-04-23] MEDS: CHOLECALCIFEROL 1,000 UNITS 25 MCG TAB PO SCH (09:00)
[2021-04-23] MEDS: LOSARTAN POTASSIUM 25 MG TAB PO SCH ×2 (09:00→20:38)
--- NOTE | 2021-04-23 10:38 | Electrocardiogram Report ---
Test Reason : Blood Pressure : / mmHG Vent. Rate : 080 BPM Atrial Rate : 080 BPM P-R Int : 148 ms QRS Dur : 080 ms QT Int : 422 ms P-R-T Axes : 035 019 010 degrees QTc Int : 486 ms Sinus rhythm with Premature atrial complexes Low voltage QRS Borderline ECG When compared with ECG of 21-APR-2021 18:38, Premature atrial complexes are now Present Confirmed by Sandeep Edward ([id number]) on 04/23/2021 10:38:00 AM Referred By: REFERRED SELF Confirmed By:Sandeep Edward
[2021-04-23] MEDS ORDERED: SODIUM CHLORIDE 0.65% NA SOLN 45 ML (OCEAN) ONE (14:01)
[2021-04-23] MEDS: ACETAMINOPHEN 325 MG TAB PO PRN (14:02)
--- NOTE | 2021-04-23 14:28 | Hospitalist Progress Note ---
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 amusement centre manager Has been on intravenous heparin and will continue for next few days Complains to have shortness of breath on exertion but no hemoptysis Likely to need prolonged anticoagulation Given the history of extensive pulmonary embolism will keep her in the hospital for the next few days on intravenous heparin Remains minimally shortness of breath with exertion We will needed to a stable O2 saturation test prior to discharge Remote family history of DVT We will discuss with oncologist on Sunday (2) DVT (deep venous thrombosis): Plan: Acute DVT of left popliteal vein likely causing pulmonary embolism Management as above No symptoms in the legs (3) Shortness of breath: Plan: Secondary to above (4) Elevated troponin: Plan: Elevated troponin is due to demand ischemia Initial troponin was high at 0.1 and subsequently it gradually went down Echocardiogram showed-normal LV size with mild concentric hypertrophy, LV wall motion is normal, EF 65 to 70%, grade 1 diastolic dysfunction, RV is normal in size and function, normal inferior vena cava size and collapsibility with sniff indicates a normal right atrial pressure of 3 mmHg, right ventricular systolic pressure is moderately elevated at 40 to 50 mmHg. Appreciate cardiology input and recommendation (5) Hypertension: Plan: Remains stable (6) Hyperlipidemia: Plan: Continue statin (7) Hypothyroidism: Plan: Continue supplement Admission and Anticipated Discharge Date Admission Date: April 21, 2021 Subjective 04/22/2021 The patient was seen and examined in emergency room in the [facility] area She has been feeling a little better Denies any chest pain and/or palpitation but he still has shortness of breath with minimal exertion No fever, chills and/or hemoptysis 04/23/2021 The patient was seen and examined in telemetry unit She has been stable at rest without any chest pain and/or palpitation Gets short of breath with minimal exertion Review of Systems Review of Systems: All systems reviewed and are unremarkable except as noted below Respiratory: S OBE Physical Exam Physical Exam: Lying in bed comfortably but very anxious Constitutional: well developed, well nourished, + ill appearing and + morbidly obese Eyes: PERRL, conjunctivae normal, anicteric sclerae ENMT: external ear and nose normal, oropharynx normal Neck: trachea midline, no thyromegaly Respiratory: + respiratory distress (Minimal distress at rest) Auscultation: lungs clear to auscultation bilaterally; no crackles and no wheezes Cardiovascular: Rate/Rhythm: regular rate and regular rhythm; not tachycardic Heart Sounds: normal S1 and normal S2; no murmur Extremities: + edema (Trace edema bilaterally) Gastrointestinal (Abdomen): Inspection/Auscultation: normal bowel sounds; abdomen not distended Percussion/Palpation: abdomen soft; abdomen nontender Musculoskeletal: No acute arthritis in any joint Neurologic: Alert, awake and oriented x3. No focal sensory and or motor deficit appreciated Lymphatic: no cervical or axillary lymphadenopathy Results & Data Results & Data ([facility]) Vital Signs (Past 12 Hours) Vital Signs Temp Pulse Pulse Resp BP BP Pulse Ox 04/23/21 11:37 37.2 C 81 17 149/85 H 95 04/23/21 07:09 36.7 C 81 19 155/89 H 95 04/23/21 04:00 82 04/23/21 03:33 36.6 C 55 L 20 140/78 Laboratory Results Short CBC 04/23/21 Range/Units 06:16 WBC 12.41 H (4.8-10.8) K/uL Hgb 13.3 (12.0-16.0) g/dL Hct 40.0 (37-47) % Plt Count 315 (130-400) K/uL BMP 04/23/21 06:16 Sodium 141 Potassium 4.0 Chloride 111 H Carbon Dioxide 25 BUN 20 H Creatinine 0.81 Glucose 107 H Calcium 9.3 Medications Administered Current Inpatient Medications Acetaminophen (Acetaminophen 325 Mg Tab) 650 mg PO Q4H PRN PRN Reason: Pain or Fever Stop: 05/22/21 03:53 Last Admin: 04/23/21 14:02 Dose: 650 mg Documented by: Atenolol (Atenolol 50 Mg Tablet) 50 mg PO DAILY COUNTS INCLUDE 234 BEDS AT THE [facility] Stop: 05/23/21 08:59 Last Admin: 04/23/21 09:00 Dose: 50 mg Documented by: Heparin Sodium/Dextrose (Heparin Sodium/Dextrose) 25,000 units in 500 mls @ 24 mls/hr IV .[id number] COUNTS INCLUDE 234 BEDS AT THE [facility]; Protocol Stop: 05/21/21 22:59 Last Titration: 04/23/21 07:45 Dose: 1,250 units/hr, 25 mls/hr Documented by: Labetalol HCl (Labetalol Hcl Iv 5 Mg/Ml 20ml) 10 mg IV Q4H PRN PRN Reason: Hypertension Stop: 05/22/21 01:44 Levalbuterol HCl (Levalbuterol Hcl 1.25 Mg/3 Ml Neb) 1.25 mg NEB Q4H PRN; Protocol PRN Reason: Shortness Of Breath Or Wheezing Stop: 05/22/21 03:53 Levothyroxine Sodium (Levothyroxine Sodium 112 Mcg Tablet) 112 mcg PO DAILYBB COUNTS INCLUDE 234 BEDS AT THE [facility] Stop: 05/22/21 06:29 Last Admin: 04/23/21 05:19 Dose: 112 mcg Documented by: Losartan Potassium (Losartan Potassium 25 Mg Tab) 25 mg PO BID COUNTS INCLUDE 234 BEDS AT THE [facility] Stop: 05/22/21 08:59 Last Admin: 04/23/21 09:00 Dose: 25 mg Documented by: Nitroglycerin (Nitroglycerin Sl 0.4 Mg/Tab Tab) 0.4 mg SL UD PRN PRN Reason: Chest Pain Stop: 05/22/21 03:53 Ondansetron HCl (Ondansetron Inj 2 Mg/Ml 2 Ml Vial) 4 mg IV Q6H PRN PRN Reason: Nausea Stop: 05/22/21 03:53 Rosuvastatin Calcium (Rosuvastatin Calcium 5 Mg Tab) 5 mg PO HS COUNTS INCLUDE 234 BEDS AT THE [facility] Stop: 05/22/21 20:59 Last Admin: 04/22/21 20:59 Dose: 5 mg Documented by: Vitamin D (Cholecalciferol 1,000 Units 25 Mcg Tab) 2,000 units PO DAILY [facility] Stop: 05/22/21 08:59 Last Admin: 04/23/21 09:00 Dose: 2,000 units Documented by: (1) Acute pulmonary embolism Acute cor pulmonale presence: unspecified Pulmonary embolism type: unspecified Qualified Code(s): I26.99 - Other pulmonary embolism without acute cor pulmonale
[2021-04-23 14:40] LABS: Partial Thromboplastin Ratio 1.5; Partial Thromboplastin Time 38.2 Seconds (21.0-31.0)
[2021-04-23] MEDS: HEPARIN SODIUM/DEXTROSE 25,000 UNITS/500 ML BAG IV SCH (19:01)
[2021-04-23] MEDS: DICLOFENAC SOD 1% GEL 100 GM TUBE EXT SCH (20:38)
[2021-04-23] MEDS: ROSUVASTATIN CALCIUM 5 MG TAB PO SCH (20:38)
[2021-04-23 21:44] LABS: Partial Thromboplastin Ratio 1.6; Partial Thromboplastin Time 40.9 Seconds (21.0-31.0)
[2021-04-24] MEDS: ACETAMINOPHEN 325 MG TAB PO PRN (04:44)
[2021-04-24 04:47] LABS: Basophils # (auto) 0.02 K/uL (0-0.2); Basophils % (auto) 0.2 %; Eosinophils # (auto) 0.13 K/uL (0-0.5); Eosinophils % (auto) 1.5 %; Hematocrit (blood only) 39.9 % (37-47); Hemoglobin 13.4 g/dL (12.0-16.0); Immature Granulocytes # (auto) 0.02 K/uL (0.00-0.02); Immature Granulocytes % (auto) 0.2 %; Mean Corpuscular Hemoglobin 30.8 pg (25-34); Mean Corpuscular Hgb Conc 33.6 g/dL (32-36); Mean Corpuscular Volume 91.7 fL (80-100); Mean Platelet Volume 8.7 fL (7.4-10.4); Monocytes # (auto) 0.56 K/uL (0.11-0.59); Monocytes % (auto) 6.6 %; Neutrophils # (auto) 5.52 K/uL (1.4-6.5); Neutrophils % (auto) 65.5 %; Platelet Count 274 K/uL (130-400); RDW Coefficient of Variation 13.9 % (11.5-14.5); RDW Standard Deviation 46.4 fL (36.4-46.3); Red Blood Count 4.35 M/uL (4.2-5.4); White Blood Count 8.45 K/uL (4.8-10.8)
[2021-04-24 04:58] LABS: Partial Thromboplastin Ratio 1.7; Partial Thromboplastin Time 44.4 Seconds (21.0-31.0)
[2021-04-24 05:05] LABS: BUN Creatinine Ratio 24.3 (10-20); Creatinine Clr Calc Pharmacy 66.7 ml/min; Est GFR (African American) 85.8 ml/min
[2021-04-24] MEDS: LEVOTHYROXINE SODIUM 112 MCG TABLET PO SCH (06:25)
[2021-04-24] MEDS: APIXABAN 5 MG TABLET PO SCH ×2 (09:04→20:55)
[2021-04-24] MEDS: LOSARTAN POTASSIUM 25 MG TAB PO SCH ×2 (09:05→20:55)
[2021-04-24] MEDS: DICLOFENAC SOD 1% GEL 100 GM TUBE EXT SCH ×2 (09:06→22:09)
[2021-04-24] MEDS: CHOLECALCIFEROL 1,000 UNITS 25 MCG TAB PO SCH (09:06)
[2021-04-24] MEDS: ATENOLOL 50 MG TABLET PO SCH (09:06)
--- NOTE | 2021-04-24 13:45 | Hospitalist Progress Note ---
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 Has been on intravenous heparin and will continue for next few days Complains to have shortness of breath on exertion but no hemoptysis Likely to need prolonged anticoagulation Given the history of extensive pulmonary embolism will keep her in the hospital for the next few days on intravenous heparin Remains minimally shortness of breath with exertion We will needed to stepO2 saturation test prior to discharge Clinically better without any significant symptoms Heparin has been discontinued and Eliquis 10 mg twice daily has been started PT and OT evaluation and possible discharge tomorrow Remote family history of DVT We will discuss with oncologist on Sunday (2) DVT (deep venous thrombosis): Plan: Acute DVT of left popliteal vein likely causing pulmonary embolism Management as above No symptoms in the legs (3) Shortness of breath: Plan: Secondary to above (4) Elevated troponin: Plan: Elevated troponin is due to demand ischemia Initial troponin was high at 0.1 and subsequently it gradually went down Echocardiogram showed-normal LV size with mild concentric hypertrophy, LV wall motion is normal, EF 65 to 70%, grade 1 diastolic dysfunction, RV is normal in size and function, normal inferior vena cava size and collapsibility with sniff indicates a normal right atrial pressure of 3 mmHg, right ventricular systolic pressure is moderately elevated at 40 to 50 mmHg. Appreciate cardiology input and recommendation (5) Hypertension: Plan: Remains stable (6) Hyperlipidemia: Plan: Continue statin (7) Hypothyroidism: Plan: Continue supplement Admission and Anticipated Discharge Date Admission Date: April 21, 2021 Subjective 04/22/2021 The patient was seen and examined in emergency room in the holding area She has been feeling a little better Denies any chest pain and/or palpitation but he still has shortness of breath with minimal exertion No fever, chills and/or hemoptysis 04/23/2021 The patient was seen and examined in telemetry unit She has been stable at rest without any chest pain and/or palpitation Gets short of breath with minimal exertion 04/24/2021 The patient was seen and examined in telemetry unit She complains some pain in her underside of left upper arm Denies any other significant symptoms Still has shortness of breath with exertion Review of Systems Review of Systems: All systems reviewed and are unremarkable except as noted below Respiratory: S OBE Physical Exam Physical Exam: Lying in bed comfortably but very anxious Constitutional: well developed, well nourished, + ill appearing and + morbidly obese Eyes: PERRL, conjunctivae normal, anicteric sclerae ENMT: external ear and nose normal, oropharynx normal Neck: trachea midline, no thyromegaly Respiratory: + respiratory distress (Minimal distress at rest) Auscultation: lungs clear to auscultation bilaterally; no crackles and no wheezes Cardiovascular: Rate/Rhythm: regular rate and regular rhythm; not tachycardic Heart Sounds: normal S1 and normal S2; no murmur Extremities: + edema (Trace edema bilaterally) Gastrointestinal (Abdomen): Inspection/Auscultation: normal bowel sounds; abdomen not distended Percussion/Palpation: abdomen soft; abdomen nontender Musculoskeletal: Minimal tenderness in the inner upper aspect of left arm without any lump and no redness Neurologic: Alert, awake and oriented x3. No focal sensory and motor deficit appreciated Lymphatic: no cervical or axillary lymphadenopathy Results & Data Results & Data ([facility]) Vital Signs (Past 12 Hours) Vital Signs Temp Pulse Resp BP Pulse Ox 04/24/21 11:15 37.0 C 78 19 125/88 96 04/24/21 07:28 37.0 C 79 20 141/91 H 97 04/24/21 04:49 36.6 C 79 18 144/98 H 96 Laboratory Results Short CBC 04/24/21 Range/Units 04:30 WBC 8.45 (4.8-10.8) K/uL Hgb 13.4 (12.0-16.0) g/dL Hct 39.9 (37-47) % Plt Count 274 (130-400) K/uL BMP 04/24/21 04:30 Sodium 138 Potassium 4.0 Chloride 110 H Carbon Dioxide 25 BUN 20 H Creatinine 0.82 Glucose 98 Calcium 9.0 Medications Administered Current Inpatient Medications Acetaminophen (Acetaminophen 325 Mg Tab) 650 mg PO Q4H PRN PRN Reason: Pain or Fever Stop: 05/22/21 03:53 Last Admin: 04/24/21 04:44 Dose: 650 mg Documented by: Apixaban (Apixaban 5 Mg Tablet) 10 mg PO BID [facility] Stop: 01/01/22 21:01 Last Admin: 04/24/21 09:04 Dose: 10 mg Documented by: Atenolol (Atenolol 50 Mg Tablet) 50 mg PO DAILY [facility] Stop: 05/23/21 08:59 Last Admin: 04/24/21 09:06 Dose: 50 mg Documented by: Diclofenac Sodium (Diclofenac Sod 1% Gel 100 Gm Tube) 2 gm EXT BID [facility] Stop: 05/23/21 20:59 Last Admin: 04/24/21 09:06 Dose: 2 gm Documented by: Labetalol HCl (Labetalol Hcl Iv 5 Mg/Ml 20ml) 10 mg IV Q4H PRN PRN Reason: Hypertension Stop: 05/22/21 01:44 Levalbuterol HCl (Levalbuterol Hcl 1.25 Mg/3 Ml Neb) 1.25 mg NEB Q4H PRN; Protocol PRN Reason: Shortness Of Breath Or Wheezing Stop: 05/22/21 03:53 Levothyroxine Sodium (Levothyroxine Sodium 112 Mcg Tablet) 112 mcg PO DAILYBB [facility] Stop: 05/22/21 06:29 Last Admin: 04/24/21 06:25 Dose: 112 mcg Documented by: Losartan Potassium (Losartan Potassium 25 Mg Tab) 25 mg PO BID [facility] Stop: 05/22/21 08:59 Last Admin: 04/24/21 09:05 Dose: 25 mg Documented by: Nitroglycerin (Nitroglycerin Sl 0.4 Mg/Tab Tab) 0.4 mg SL UD PRN PRN Reason: Chest Pain Stop: 05/22/21 03:53 Ondansetron HCl (Ondansetron Inj 2 Mg/Ml 2 Ml Vial) 4 mg IV Q6H PRN PRN Reason: Nausea Stop: 05/22/21 03:53 Rosuvastatin Calcium (Rosuvastatin Calcium 5 Mg Tab) 5 mg PO HS [facility] Stop: 05/22/21 20:59 Last Admin: 04/23/21 20:38 Dose: 5 mg Documented by: Vitamin D (Cholecalciferol 1,000 Units 25 Mcg Tab) 2,000 units PO DAILY [facility] Stop: 05/22/21 08:59 Last Admin: 04/24/21 09:06 Dose: 2,000 units Documented by: (1) Acute pulmonary embolism Acute cor pulmonale presence: unspecified Pulmonary embolism type: unspecified Qualified Code(s): I26.99 - Other pulmonary embolism without acute cor pulmonale
[2021-04-24] MEDS: ROSUVASTATIN CALCIUM 5 MG TAB PO SCH (20:55)
[2021-04-25] MEDS: HEPARIN SODIUM/DEXTROSE 25,000 UNITS/500 ML BAG IV SCH (01:42)
[2021-04-25] MEDS: LEVOTHYROXINE SODIUM 112 MCG TABLET PO SCH (06:15)
[2021-04-25] MEDS: ACETAMINOPHEN 325 MG TAB PO PRN (06:15)
[2021-04-25 07:07] LABS: Basophils # (auto) 0.02 K/uL (0-0.2); Basophils % (auto) 0.3 %; Eosinophils # (auto) 0.17 K/uL (0-0.5); Eosinophils % (auto) 2.2 %; Hematocrit (blood only) 40.7 % (37-47); Hemoglobin 13.7 g/dL (12.0-16.0); Immature Granulocytes # (auto) 0.01 K/uL (0.00-0.02); Immature Granulocytes % (auto) 0.1 %; Lymphocytes # (auto) 1.86 K/uL (1.2-3.4); Lymphocytes % (auto) 24.4 %; Mean Corpuscular Hemoglobin 31.4 pg (25-34); Mean Corpuscular Hgb Conc 33.7 g/dL (32-36); Mean Corpuscular Volume 93.1 fL (80-100); Mean Platelet Volume 8.7 fL (7.4-10.4); Monocytes # (auto) 0.57 K/uL (0.11-0.59); Monocytes % (auto) 7.5 %; Neutrophils % (auto) 65.5 %; Platelet Count 298 K/uL (130-400); RDW Coefficient of Variation 14.1 % (11.5-14.5); RDW Standard Deviation 47.9 fL (36.4-46.3); Red Blood Count 4.37 M/uL (4.2-5.4); White Blood Count 7.63 K/uL (4.8-10.8)
[2021-04-25 07:46] LABS: BUN Creatinine Ratio 21.4 (10-20); Calcium 9.4 mg/dl (8.5-10.1); Creatinine Clr Calc Pharmacy 66.4 ml/min; Est GFR (African American) 85.8 ml/min
[2021-04-25] MEDS: ATENOLOL 50 MG TABLET PO SCH (08:09)
[2021-04-25] MEDS: DICLOFENAC SOD 1% GEL 100 GM TUBE EXT SCH (08:09)
[2021-04-25] MEDS: CHOLECALCIFEROL 1,000 UNITS 25 MCG TAB PO SCH (08:09)
[2021-04-25] MEDS: LOSARTAN POTASSIUM 25 MG TAB PO SCH (08:09)
[2021-04-25] MEDS: APIXABAN 5 MG TABLET PO SCH (08:09)
[2021-04-25 10:58] LABS: Appearance Urine Clear (Clear); Bilirubin Urine Negative (Negative); Blood Urine Negative (Negative); Color Urine Yellow; Glucose Urine UA Negative (Negative); Ketones Urine Negative (Negative); Leukocyte Esterase Urine Trace (Negative); Nitrite Urine Negative (Negative); Protein Urine Negative (Negative); Specific Gravity Urine 1.003 (1.000-1.030); Urobilinogen Urine Negative (Negative)
[2021-04-25 11:17] LABS: Bacteria Urine Negative (Negative); RBC Urine 0-4 /hpf (0-4); WBC Urine 0-5 /hpf (0-5)
--- NOTE | 2021-04-25 12:02 | Hospitalist Progress Note ---
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 Has been on intravenous heparin and will continue for next few days Complains to have shortness of breath on exertion but no hemoptysis Likely to need prolonged anticoagulation Given the history of extensive pulmonary embolism will keep her in the hospital for the next few days on intravenous heparin Remains minimally shortness of breath with exertion We will needed to stepO2 saturation test prior to discharge Clinically better without any significant symptoms Heparin has been discontinued and Eliquis 10 mg twice daily has been started PT and OT evaluation and possible discharge tomorrow Clinically much better and has had to a stable O2 saturation test and she will require 2 L with ambulation She was given Eliquis to treat her pulmonary embolism and DVT and was strongly advised to make an appointment with a geothermal powerplant mechanic as soon as possible She was advised to avoid any NSAID's for pain Remote family history of DVT She was advised to have follow-up with geothermal powerplant mechanic and her primary care physician (2) DVT (deep venous thrombosis): Plan: Acute DVT of left popliteal vein likely causing pulmonary embolism Management as above No symptoms in the legs (3) Shortness of breath: Plan: Secondary to above (4) Elevated troponin: Plan: Elevated troponin is due to demand ischemia Initial troponin was high at 0.1 and subsequently it gradually went down Echocardiogram showed-normal LV size with mild concentric hypertrophy, LV wall motion is normal, EF 65 to 70%, grade 1 diastolic dysfunction, RV is normal in size and function, normal inferior vena cava size and collapsibility with sniff indicates a normal right atrial pressure of 3 mmHg, right ventricular systolic pressure is moderately elevated at 40 to 50 mmHg. Appreciate cardiology input and recommendation (5) Hypertension: Plan: Remains stable (6) Hyperlipidemia: Plan: Continue statin (7) Hypothyroidism: Plan: Continue supplement Admission and Anticipated Discharge Date Admission Date: April 21, 2021 Subjective 04/22/2021 The patient was seen and examined in emergency room in the holding area She has been feeling a little better Denies any chest pain and/or palpitation but he still has shortness of breath with minimal exertion No fever, chills and/or hemoptysis 04/23/2021 The patient was seen and examined in telemetry unit She has been stable at rest without any chest pain and/or palpitation Gets short of breath with minimal exertion 04/24/2021 The patient was seen and examined in telemetry unit She complains some pain in her underside of left upper arm Denies any other significant symptoms Still has shortness of breath with exertion 04/25/2021 The patient was seen and examined in telemetry unit She has been feeling much better and the pain in left arm has improved Denies any shortness of breath at rest She still has short of breath with exertion though Review of Systems Review of Systems: All systems reviewed and are unremarkable except as noted below Respiratory: S OBE Physical Exam Physical Exam: Lying in bed comfortably but very anxious Constitutional: well developed, well nourished, + ill appearing and + morbidly obese Eyes: PERRL, conjunctivae normal, anicteric sclerae ENMT: external ear and nose normal, oropharynx normal Neck: trachea midline, no thyromegaly Respiratory: + respiratory distress (Minimal distress at rest) Auscultation: lungs clear to auscultation bilaterally; no crackles and no wheezes Cardiovascular: Rate/Rhythm: regular rate and regular rhythm; not tachycardic Heart Sounds: normal S1 and normal S2; no murmur Extremities: + edema (Trace edema bilaterally) Gastrointestinal (Abdomen): Inspection/Auscultation: normal bowel sounds; abdomen not distended Percussion/Palpation: abdomen soft; abdomen nontender Musculoskeletal: No acute arthritis in any joint Neurologic: Alert, awake and oriented x3. No focal sensory or no motor deficit appreciated Lymphatic: no cervical or axillary lymphadenopathy Results & Data Results & Data ([facility]) Vital Signs (Past 12 Hours) Vital Signs Temp Pulse Pulse Pulse Pulse Pulse Resp 04/25/21 11:18 37.4 C 75 18 04/25/21 09:40 98 H 101 H 90 84 04/25/21 07:55 37.1 C 77 18 04/25/21 03:57 36.8 C 79 18 Resp Resp Resp Resp BP Pulse Ox Pulse Ox 04/25/21 11:18 159/91 H 96 04/25/21 09:40 18 18 18 18 94 04/25/21 07:55 133/85 95 04/25/21 03:57 133/76 96 Pulse Ox Pulse Ox Pulse Ox 04/25/21 11:18 04/25/21 09:40 85 L 96 97 04/25/21 07:55 04/25/21 03:57 Laboratory Results Short CBC 04/25/21 Range/Units 06:38 WBC 7.63 (4.8-10.8) K/uL Hgb 13.7 (12.0-16.0) g/dL Hct 40.7 (37-47) % Plt Count 298 (130-400) K/uL BMP 04/25/21 06:38 Sodium 137 Potassium 4.0 Chloride 108 H Carbon Dioxide 25 BUN 18 Creatinine 0.82 Glucose 97 Calcium 9.4 Urine 04/25/21 Range/Units 10:15 Urine Color Yellow Urine Appearance Clear (Clear) Urine pH 7.0 (4.5-7.5) Ur Specific [place] 1.003 (1.000-1.030) Urine Protein Negative (Negative) Urine Glucose (UA) Negative (Negative) Medications Administered Current Inpatient Medications Acetaminophen (Acetaminophen 325 Mg Tab) 650 mg PO Q4H PRN PRN Reason: Pain or Fever Stop: 05/22/21 03:53 Last Admin: 04/25/21 06:15 Dose: 650 mg Documented by: Apixaban (Apixaban 5 Mg Tablet) 10 mg PO BID [facility] Stop: 04/30/21 21:01 Last Admin: 04/25/21 08:09 Dose: 10 mg Documented by: Atenolol (Atenolol 50 Mg Tablet) 50 mg PO DAILY [facility] Stop: 05/23/21 08:59 Last Admin: 04/25/21 08:09 Dose: 50 mg Documented by: Diclofenac Sodium (Diclofenac Sod 1% Gel 100 Gm Tube) 2 gm EXT BID [facility] Stop: 05/23/21 20:59 Last Admin: 04/25/21 08:09 Dose: Not Given Documented by: Labetalol HCl (Labetalol Hcl Iv 5 Mg/Ml 20ml) 10 mg IV Q4H PRN PRN Reason: Hypertension Stop: 05/22/21 01:44 Levalbuterol HCl (Levalbuterol Hcl 1.25 Mg/3 Ml Neb) 1.25 mg NEB Q4H PRN; Protocol PRN Reason: Shortness Of Breath Or Wheezing Stop: 05/22/21 03:53 Levothyroxine Sodium (Levothyroxine Sodium 112 Mcg Tablet) [facility] Stop: 05/22/21 06:29 Last Admin: 04/25/21 06:15 Dose: 112 mcg Documented by: Losartan Potassium (Losartan Potassium 25 Mg Tab) 25 mg PO BID [facility] Stop: 05/22/21 08:59 Last Admin: 04/25/21 08:09 Dose: 25 mg Documented by: Nitroglycerin (Nitroglycerin Sl 0.4 Mg/Tab Tab) 0.4 mg SL UD PRN PRN Reason: Chest Pain Stop: 05/22/21 03:53 Ondansetron HCl (Ondansetron Inj 2 Mg/Ml 2 Ml Vial) 4 mg IV Q6H PRN PRN Reason: Nausea Stop: 05/22/21 03:53 Rosuvastatin Calcium (Rosuvastatin Calcium 5 Mg Tab) 5 mg PO HS [facility] Stop: 05/22/21 20:59 Last Admin: 04/24/21 20:55 Dose: 5 mg Documented by: Vitamin D (Cholecalciferol 1,000 Units 25 Mcg Tab) 2,000 units PO DAILY [facility] Stop: 05/22/21 08:59 Last Admin: 04/25/21 08:09 Dose: 2,000 units Documented by: (1) Acute pulmonary embolism Acute cor pulmonale presence: unspecified Pulmonary embolism type: unspecifi ed Qualified Code(s): I26.99 - Other pulmonary embolism without acute cor pulmonale
--- NOTE | 2021-04-25 17:43 | Discharge Summary ---
Date of Service April 25, 2021 Admission HPI Per Admitting Provider DICTATED BY:James Florez MD DATE OF ADMISSION: 04/21/2021. CHIEF COMPLAINT: Shortness of breath. HISTORY OF PRESENT ILLNESS: This is a 65-year-old female with past medical history significant for hypertension, heartburn, hyperlipidemia, hypothyroidism, history of basal cell skin cancer, who lives alone, presents with shortness of breath. The patient states since last night she was feeling short of breath, which prompted her to come to the ER. Denies any chest pain. No cough, no fevers, no headache, no blurred visions, no runny nose, no sore throat. No nausea, no vomiting, no abdominal pain. Normal bowel and bladder movements. No hematuria, no blood in the stool No Night sweats. No recent weight gain or loss. Says Had Normal colonoscopy in 2013. In the ER, imaging studies showed bilateral PE and also possible right heart strain. Troponin 0.17. With 2 liters oxygen, she is saturating 100%. Feeling somewhat anxious and requested for some antianxiety medication. The patient says she has no history of blood clots in the past and the patient says her mother's side has a history of blood clots. Denies any leg pain. Denies any recent surgeries otherwise. She is not very active, but she ambulates okay at home and she baby sits her two grandkids. Admission Exam Per Admitting Provider GENERAL: The patient is of moderate build, not in acute distress. VITAL SIGNS: Temperature 36.7, pulse 103, respiratory rate 20, blood pressure 189/104, oxygen 100% on 2 liters. HEENT: Pupils equal, round and reactive to light. Oral mucosa moist. NECK: No JVD. No neck masses. CARDIOVASCULAR: S1 and S2 heard. Regular rate and rhythm. No murmur, no gallop. RESPIRATORY SYSTEM: Normal AP diameter. No accessory muscle use. No wheezing, no crackles. ABDOMEN: Soft, bowel sounds present, nontender, no distention. CENTRAL NERVOUS SYSTEM: Cranial nerves II-XII grossly intact, nonfocal. EXTREMITIES: Trace pedal edema, no erythema, no calf tenderness. Principal Diagnosis Acute bilateral pulmonary embolism, acute DVT of left popliteal vein, hypertension Discharge Exam Lying in bed comfortably but very anxious Constitutional well developed, well nourished, + ill appearing and + morbidly obese Eyes PERRL, conjunctivae normal, anicteric sclerae ENMT external ear and nose normal, oropharynx normal Neck trachea midline, no thyromegaly Respiratory + respiratory distress (Minimal distress at rest) Auscultation: lungs clear to auscultation bilaterally; no crackles and no wheezes Cardiovascular Rate/Rhythm: regular rate and regular rhythm; not tachycardic Heart Sounds: normal S1 and normal S2; no murmur Extremities: + edema (Trace edema bilaterally) Gastrointestinal (Abdomen) Inspection/Auscultation: normal bowel sounds; abdomen not distended Percussion/Palpation: abdomen soft; abdomen nontender Lymphatic no cervical or axillary lymphadenopathy Discharge Data Allergies Allergy/AdvReac Type Severity Reaction Status Date / Time hydrocodone Allergy Intermediate itchiness Verified 04/21/21 22:00 Consultations 04/21/21 22:55 ED Decision to Admit Stat 04/22/21 08:00 Consult Cardiology Routine Consult Pulmonology Routine Ordered Studies 04/21/21 20:44 CT angio chest PE protocol Urgent 04/22/21 03:54 US venous doppler [facility] Hospital Course (1) Acute pulmonary embolism: Presented with acute shortness of breath and noted to have pulmonary embolism and DVT without any provocation Has significant bilateral segmental and subsegmental pulmonary embolism No 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 Has been on intravenous heparin and will continue for next few days Complains to have shortness of breath on exertion but no hemoptysis Likely to need prolonged anticoagulation Given the history of extensive pulmonary embolism will keep her in the hospital for the next few days on intravenous heparin Remains minimally shortness of breath with exertion We will needed to stepO2 saturation test prior to discharge Clinically better without any significant symptoms Heparin has been discontinued and Eliquis 10 mg twice daily has been started PT and OT evaluation and possible discharge tomorrow Clinically much better and has had to a stable O2 saturation test and she will require 2 L with ambulation She was given Eliquis to treat her pulmonary embolism and DVT and was strongly advised to make an appointment with a dehydrator operator as soon as possible She was advised to avoid any NSAID's for pain Remote family history of DVT She was advised to have follow-up with dehydrator operator and her primary care physician (2) DVT (deep venous thrombosis): Acute DVT of left popliteal vein likely causing pulmonary embolism Management as above No symptoms in the legs (3) Shortness of breath: Secondary to above (4) Elevated troponin: Elevated troponin is due to demand ischemia Initial troponin was high at 0.1 and subsequently it gradually went down Echocardiogram showed-normal LV size with mild concentric hypertrophy, LV wall motion is normal, EF 65 to 70%, grade 1 diastolic dysfunction, RV is normal in size and function, normal inferior vena cava size and collapsibility with sniff indicates a normal right atrial pressure of 3 mmHg, right ventricular systolic pressure is moderately elevated at 40 to 50 mmHg. Appreciate cardiology input and recommendation (5) Hypertension: Remains stable (6) Hyperlipidemia: Continue statin (7) Hypothyroidism: Continue supplement Total Time Total Time Spent Total Time Spent (In Minutes): 35 minutes Discharge Plan Discharge Items Patient Disposition: Home - Self-Care Reason For Visit: SOB Discharge Diagnosis: Acute bilateral pulmonary embolism, acute DVT of left popliteal vein, hypertension Condition on Discharge: Fair Activity: Resume your previous activity Non-emergency contact: Primary Care Provider Call non-emergency contact if: you have any medication questions and your symptoms worsen Follow-up/Referrals: Bo Barraza [Primary Care Provider] - (Please make an appointment with your primary care physician within 7 days. Please have a follow-up appointment with dehydrator operator for the follow-up of DVT and PE) Diet: Heart Healthy Addtl Attending Provider Instructions: Please take precautions to avoid fall Take oxygen as advised Take your Eliquis as advised-do not miss a dose You will need to have a follow-up appointment with dehydrator operator to find out possible cause for clot disorder and further management. Pending Studies at Discharge: No Stand-Alone Forms: My [facility] Jostle, Smoking Cessation Medications and DC Order Prescriptions: New Eliquis 5 mg Tablet 10 mg PO BID 30 Days Qty: 100 RF: 0 diclofenac sodium [Voltaren Arthritis Pain] 1 % Gel 2 g EXT BID 10 Days Qty: 30 RF: 0 atenolol 50 mg Tablet 50 mg PO DAILY 30 Days Qty: 30 RF: 0 Continued losartan 25 mg tablet 25 mg PO BID RF: 0 levothyroxine 112 mcg tablet 112 mcg PO DAILYBB RF: 0 rosuvastatin 5 mg tablet 5 mg PO HS RF: 0 cholecalciferol (vitamin D3) [Vitamin D3] 50 mcg (2,000 unit) Capsule 50 mcg PO DAILY RF: 0 Discontinued atenolol 25 mg tablet 25 mg PO DAILY RF: 0 Discharge Orders: Discharge Order (Routine); Ordered 04/25/21 Ordered By: Marco A Ordoñez Admission Data Admit Date/Time: 04/21/21 23:59 Attending Provider: Marco A Ordoñez Admit Provider: James Florez Primary Care Provider: Bo Barraza Other Providers: James Florez ; Jeferson Farr ; Fani Self Other Interventions: Discharge Summary Assessment (RN) Last Done: 04/25/21 12:40
== END 2021-04-25 15:54 | disposition home or self-care (01) | DRG 299 ==
LOC: ED 17:02 → EDINP 23:59 → 2S 04-22 03:49